=== PATIENT | female | born 1990 | race Two or more races ===

== ENCOUNTER 2018-01-11 11:57 | Emergency (ER) | payer OTHER ==
[2018-01-11 12:04] VITALS: BP 115/68
--- NOTE | 2018-01-11 12:47 | EDPHY ---
General Time Seen by Provider: 01/11/18 12:41 Narrative: CHIEF COMPLAINT: Left wrist pain, fall 1 week ago HISTORY OF PRESENT ILLNESS: Patient presents with complaints of left wrist pain. This happened approximately 1 week ago when she slipped and fell at work. She landed on outward stretched left upper extremity. She felt a sudden onset of pain left wrist including the snuffbox. [id number] pain that has been persistent. No improvement. No worsening. No numbness, tingling, laceration or puncture. No injury anywhere else on her person. She has been using her own home Velcro brace for this with no improvement. No other associated complaints or modifying factors. DOMINANT EXTREMITY: Right-hand dominant ESTABLISHED ORTHOPEDIST: None REVIEW OF SYSTEMS: Ten systems reviewed and are negative unless otherwise noted in the HPI PAST MEDICAL HISTORY: Uncomplicated PAST SURGICAL HISTORY: No surgical history SOCIAL HISTORY: Nonsmoker. Lives and works here independently. FAMILY HISTORY: Noncontributory EXAMINATION General Appearance: Alert, no distress Cardiovascular: Symmetric radial pulses 2+. Brisk cap refill the fingers left hand. Neurological: A&O, 2 point sensory symmetric, interossei and saddle cutter strength symmetric Skin: Warm and dry, no rash. No petechiae, purpura, laceration or puncture Extremities: Circumferential tenderness of the left wrist including the snuffbox. There is no step-off, or deformity. There is full range of motion of the fingers, wrist and elbow symmetrically. Neurovascular intact distal to the left wrist pain. Psychiatric: Mood and affect normal DIFFERENTIAL DIAGNOSES: Including but not limited to sprain, strain, scaphoid injury MDM: 12:50 p.m. Left wrist pain from fall 1 week ago with snuffbox tenderness. The patient has pain 1 week post injury with 1 normal x-ray here. Given location of her pain and snuffbox, I have ordered a thumb spica splint. I discussed the nature of the injury in the possibility of false negative x-rays. We discussed follow up with worker's compensation Clinic and repeat x-ray in 7-10 days of her pain persist. We discussed ED precautions, ice, elevation and [id number] anti- inflammatories. She is comfortable this plan and discharged home stable condition. SUPERVISION: This patient was independently evaluated without direct involvement of or examination by the attending physician. ED Precautions: Worsening pain. Erythema, edema, cyanosis, pallor, paresthesia or anesthesia. - Diagnostics Imaging Results: Imaging Impressions Wrist X-Ray 01/11/18 12:05 Impression: Nothing acute identified. - History Smoking Status: Never smoked - Objective Vital Signs: Initial Vital Signs Temperature (C) 97.9 F 01/11/18 12:00 Heart Rate 66 01/11/18 12:00 Respiratory Rate 16 01/11/18 12:00 Blood Pressure 115/68 01/11/18 12:00 O2 Sat (%) 97 01/11/18 12:00 O2 Delivery Mode Room Air Allergies/Adverse Reactions: amoxicillin [From Amoxil] Allergy (Mild, Verified 01/11/18 12:02) Rash Home Medications: Medication Instructions Recorded NK [No Known Home Meds] 01/11/18 Departure - Departure Disposition: Home, Routine, Self-Care Clinical Impression: Left wrist sprain Qualifiers: Encounter type: initial encounter Qualified Code(s): S63.502A - Unspecified sprain of left wrist, initial encounter Condition: Good Instructions: Wrist Sprain (ED) Additional Instructions: 1. Keep your Velcro thumb spica splint in place at all times when awake and not showering 2. Contact her worker's compensation Clinic for further follow-up 3. Recommend follow up with Orthopedics in 1 week for repeat x-ray given the location of the pain Referrals: Dixon Bah MD [Medical Doctor] - As per Instructions Stand Alone Forms: Work Comp Follow Up
== END 2018-01-11 12:55 | disposition home or self-care (01) ==
DX: S63.502A Unspecified sprain of left wrist, initial encounter (principal); W01.0XXA Fall on same level from slipping, tripping and stumbling without subsequent striking against object, initial encounter; Y99.8 Other external cause status; Y93.89 Activity, other specified
CPT/HCPCS: L3807